=== PATIENT | male | born 1980 | race Caucasian/White ===

== ENCOUNTER 2022-09-09 12:15 | Emergency (ER) | payer OTHER, MEDICAID, SELFPAY ==
[2022-09-09 12:18] VITALS: BP 149/96; PULSE 84; RESP 16; TEMP 36.2; O2SAT 96; BMI 40.3
--- NOTE | 2022-09-09 12:19 | DI.CT.S_ITS ---
PROCEDURE: CT HEAD/BRAIN WO CON INDICATIONS: fall, severe headache, L eye vision change TECHNIQUE: Noncontrast 4.5 mm thick angled axial sections acquired from the foramen magnum to the vertex, with coronal and sagittal reformats. For radiation dose reduction, the following was used: automated exposure control, adjustment of mA and/or kV according to patient size. COMPARISON: None. FINDINGS: Image quality: Excellent. CSF spaces: Basal cisterns are patent. No extra-axial fluid collections. Ventricles are normal in size and shape. Brain: No midline shift. No intracranial masses or hemorrhage. Fay-white matter interface is normal. Skull and face: Calvarium and visualized facial bones are intact, without suspicious lesions. Sinuses: Visualized sinuses and mastoids are clear. IMPRESSION: No acute intracranial process. Dictated by: Neto Escobar M.D. on 09/09/2022 at 13:08 Approved by: Neto Escobar M.D. on 09/09/2022 at 13:09
--- NOTE | 2022-09-09 12:19 | DI.CT.S_ITS ---
PROCEDURE: CT CERVICAL SPINE WO CON INDICATIONS: fall with pain TECHNIQUE: Noncontrast 3 mm thick sections acquired from the skull base to the T4 level. Sagittal and coronal reformats were then constructed. For radiation dose reduction, the following was used: automated exposure control, adjustment of mA and/or kV according to patient size. COMPARISON: None. FINDINGS: Image quality: Excellent. Bones: No fractures or dislocations. Visualized superior ribs are intact. Mild cervical spondylosis. Bilateral uncovertebral joint osteophytes narrow the foraminal bilaterally at C4-C5 and C5-C6. Soft tissues: Prevertebral soft tissues are normal in thickness. No paravertebral hematomas. No apical pneumothoraces. IMPRESSION: No evidence acute cervical fracture or dislocation. Cervical spondylosis. Dictated by: Neto Escobar M.D. on 09/09/2022 at 13:09 Approved by: Neto Escobar M.D. on 09/09/2022 at 13:11
--- NOTE | 2022-09-09 12:20 | ED_ITS ---
HPI - General Adult General Chief complaint: Fall Stated complaint: Fall, blurry vision Time Seen by Provider: 09/09/22 12:19 History of Present Illness HPI narrative: 41M nonsmoker with noncontributory medical history presents by EMS for evaluation of a fall with head and neck injury. He does not take blood thinners. He was going to sit in a chair which broke when he sat down causing him to fall backwards and strike the back of his head. He now has a severe headache and complains of left eye vision change and midline neck pain. He is nauseated but denies any vomiting. He denies any contributing prodromal symptoms such as dizziness, weakness or lightheadedness. He did not lose consciousness and has full recall of the event. He denies any extremity numbness, tingling or weakness Review of Systems Review of Systems Narrative: GENERAL: Denies chills, fatigue, malaise, fever, sweats. HEENT: See HPI RESPIRATORY: Denies dyspnea, cough, wheezing, hemoptysis, sputum. CARDIOVASCULAR: Denies chest pain, palpitations, orthopnea, edema, GASTROINTESTINAL: Denies nausea, vomiting, abdominal pain, diarrhea, constipation, melena. : Denies dysuria, frequency, incontinence, hematuria, urinary retention. MUSCULOSKELETAL: denies weakness, joint pain, or bony pain SKIN: Denies rash, skin lesions, or other NEUROLOGIC: See HPI PSYCHIATRIC: No concerning psychosocial issues. 12 point review of systems is negative except for those stated above Exam Narrative Exam Narrative: GENERAL: [41] year old patient appears stated age. Well-developed patient, in mild distress. GCS 15 HEAD: Atraumatic. Normocephalic. No contusion, hematoma no evidence of depressed skull fracture EYES: Pupils equal round and reactive. Extraocular motions intact. No scleral icterus. No injection or drainage. ENT: Nose without bleeding, purulent drainage. Throat without erythema, tonsillar hypertrophy or exudate. Airway patent. NECK: Trachea midline. Non tender, mild midline tenderness, no step-offs or crepitance CARDIOVASCULAR: Regular rate and rhythm without murmurs, gallops, or rubs. RESPIRATORY: Clear to auscultation. Breath sounds equal bilaterally. No wheezes, rales, or rhonchi. GASTROINTESTINAL: Abdomen soft, non-tender, nondistended. EXTREMITIES: No edema or joint tenderness. BACK: Nontender without deformity or crepitance. No flank tenderness. NEURO: AOx3. SKIN: No rash or erythema of visible areas Initial Vital Signs Initial Vital Signs: Vital Signs Temperature 97.2 F L 09/09/22 12:18 Pulse Rate 84 09/09/22 12:18 Respiratory Rate 16 09/09/22 12:18 Blood Pressure 149/96 H 09/09/22 12:18 Pulse Oximetry 96 09/09/22 12:18 Oxygen Delivery Method Room Air 09/09/22 12:18 Course Orders Ordered: ED Orders 09/09/22 12:19 CT cervical spine wo con Stat CT head/brain wo con Stat Vital Signs Vital signs: Vital Signs - 8 hr 09/09/22 12:18 09/09/22 13:28 Temperature 97.2 F L Pulse Rate 84 87 Respiratory Rate 16 16 Blood Pressure 149/96 H 161/89 H Pulse Oximetry 96 98 Oxygen Delivery Method Room Air Room Air Medical Decision Making [facility] Narrative Medical decision making narrative: 41] year old patient presents with fall with head injury Multiple etiologies for patient's symptoms considered including, but not limited to: [Concussion, intracranial hemorrhage, paraspinal spasm versus fracture versus other] Primary Historian: patient Imaging reviewed: Head CT and C-spine without evidence of fracture, bleeding, dislocation Patient's symptoms improved over duration of stay with above-stated therapies. History and physical exam reassuring, no abnormal extraocular motion, no evidence of hyphema, scleral injection, watering. Findings and discharge diagnosis discussed with patient/family followed by verbalization of understanding Return precautions discussed with patient/family whom verbalize understanding of diagnosis and plan Discharge Plan Departure Patient Disposition: Home Clinical Impression: Concussion Instructions: Concussion Activity Restrictions/Additional Instructions: *You have been diagnosed with [fall with head injury and evidence of mild concussion. As we discussed your CT scans of the head and cervical spine are unremarkable] *What to do: *Please continue to take your regular medications as directed. [ ] New medication prescriptions sent to your pharmacy: [ ] [ ] New medication written as a paper prescription [ ] No new medications given *Please follow up with your primary care provider in 2-3 days, call for an appointment. Let them know you were seen in the Emergency Department and that we ask that you be seen in follow up. We will electronically transmit a record of today's note if your PCP is in our system As we discussed I have reached out to local ophthalmology, I have included their contact information, please call later today, let them know you were seen in the emergency department and we would like you seen in follow-up. *If you do not have a primary care provider please contact the [facility] Resource line at [phone]. They will ask some questions about your medical history and help get you set up with a doctor in the community. *Return to Emergency Department if you should have any new, worsening or concerning symptoms, such as [fever greater than 101 F, shaking chills, worsening pain, persistent vomiting or other bothersome symptoms] Referrals: Radha Henson MD [Physician] - Miscellaneous,MD Kenton [Primary Care Provider] - Stand Alone Forms: Patient Portal/API
[2022-09-09 13:28] VITALS: BP 161/89; PULSE 87; RESP 16; O2SAT 98
== END 2022-09-09 13:35 | disposition home or self-care (01) ==
PROVIDERS: Emergency Provider Emergency Medicine
DX: S06.0X0A Concussion without loss of consciousness, initial encounter (principal); M54.2 Cervicalgia; W07.XXXA Fall from chair, initial encounter
CPT/HCPCS: 70450; 72125; 99282; 99283

== ENCOUNTER 2022-09-16 11:13 | Emergency (ER) | payer OTHER, MEDICAID, SELFPAY ==
[2022-09-16 11:18] VITALS: BP 148/95; PULSE 94; RESP 18; TEMP 36.4; O2SAT 99; BMI 39.1
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
[2022-09-16 12:41] VITALS: BP 149/80; PULSE 85; RESP 18; O2SAT 97
== END 2022-09-16 12:41 | disposition home or self-care (01) ==
PROVIDERS: Emergency Provider Student in an Organized Health Care Education/Training Program
DX: H60.92 Unspecified otitis externa, left ear (principal)
CPT/HCPCS: 99281

== ENCOUNTER 2022-11-21 13:12 | Inpatient (IN) | payer OTHER, MEDICAID, SELFPAY ==
[2022-11-21] VITALS (7 sets, daily range): BP systolic 105–160; BP diastolic 60–111; PULSE 89–112; RESP 18–20; TEMP 36.8–37.1; O2SAT 96–98; BMI 37.3
--- NOTE | 2022-11-21 13:29 | DI.RAD.S_ITS ---
PROCEDURE: XR CHEST 1V INDICATIONS: suspected sepsis TECHNIQUE: One view of the chest was acquired. COMPARISON: None. FINDINGS: Surgical changes and devices: None. Lungs and pleura: Lungs are clear. No pleural effusions or pneumothorax. Mediastinum: Mediastinal contours appear normal. Heart size is normal. Bones and chest wall: No suspicious bony lesions. Overlying soft tissues appear unremarkable. IMPRESSION: No acute cardiopulmonary process. Dictated by: Dennis Macdonald M.D. on 11/21/2022 at 15:45 Approved by: Dennis Mcadonald M.D. on 11/21/2022 at 15:45
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
--- NOTE | 2022-11-21 13:30 | DI.RAD.S_ITS ---
PROCEDURE: XR ANKLE RT MIN 3V INDICATIONS: foot/ankle injury monday. TECHNIQUE: 3 views of the ankle were acquired. COMPARISON: None. FINDINGS: Bones: No fractures or dislocations. Ankle mortise is normally aligned. No suspicious bony lesions. Osteoarthritic changes of the ankle joint. Soft tissues: No tibiotalar joint effusion. Achilles tendon appears normal. IMPRESSION: No acute osseous abnormality. If pain persists with conservative management, consider repeat x-ray in 10-14 days or cross-sectional imaging. Dictated by: Dennis Macdonald M.D. on 11/21/2022 at 15:44 Approved by: Dennis Macdonald M.D. on 11/21/2022 at 15:45
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
--- NOTE | 2022-11-21 14:17 | DI.RAD.S_ITS ---
PROCEDURE: XR KNEE RT 3V INDICATIONS: knee pain TECHNIQUE: 3 views of the knee were acquired. COMPARISON: None. FINDINGS: Bones: No fractures or dislocations. No suspicious bony lesions. Soft tissues: No joint effusion. No suspicious soft tissue calcifications. IMPRESSION: No acute bony abnormality. Dictated by: Roman Liang M.D. on 11/21/2022 at 14:57 Approved by: Roman Liang M.D. on 11/21/2022 at 14:57
[2022-11-21 14:41] LABS: Add Manual Diff / Slide Review NO; Basophils Absolute Auto 0 /uL (0-100); Basophils Percent Auto 0.2 % (0-2); Eosinophils Absolute Auto 100 /uL (0-450); Eosinophils Percent Auto 0.5 % (2-4); Hematocrit 46.4 % (41-53); Hemoglobin 16.1 g/dL (13.5-17.5); Lymphocytes Absolute Auto 1300 /uL (1100-4500); Lymphocytes Percent Auto 8.3 % (25-40); Mean Corpuscular HGB Conc 34.6 % (30-36); Mean Corpuscular Hemoglobin 31.1 PG (26-34); Mean Corpuscular Volume 89.8 fL (80-100); Monocytes Absolute Auto 800 /uL (0-900); Monocytes Percent Auto 5.2 % (3-14); Neutrophils Absolute Auto 13100 /uL (1500-7000); Neutrophils Percent Auto 85.8 % (50-75); Platelet Count 221 X10^3/uL (150-400); Red Blood Cell Count 5.17 X10^6/uL (4.5-5.9); Red Cell Distribution Width 13.5 % (11.6-14.8); White Blood Cell Count 15.2 X10^3/uL (4.5-11.0)
[2022-11-21 14:55] LABS: INR 1.2 (0.9-1.3); Lactate (Lactic Acid) 1.3 mmol/L (0.7-2.1); Prothrombin Time 13.9 SECONDS (10.1-12.7)
[2022-11-21 14:56] LABS: Alanine Aminotransferase 35 IU/L (<50); Albumin 4.5 g/dL (3.5-5.0); Alkaline Phosphatase 77 U/L (38-126); Aspartate Aminotransferase 31 IU/L (17-59); BUN Creatinine Ratio 19.8 (6-22); Bilirubin Total 1.2 mg/dL (0.2-1.3); Blood Urea Nitrogen 17 mg/dL (9-20); Calcium 9.4 mg/dL (8.4-10.2); Carbon Dioxide 25 mmol/L (22-32); Chloride 97 mmol/L (98-107); Estimated Glomerular Filt Rate > 60 mL/min (>60); Globulin 4.3 g/dL (1.7-4.1); Glucose 109 mg/dL (70-100); HEMOLYSIS 35 (0-50); Lipase 42 U/L (23-300); Potassium 3.7 mmol/L (3.4-5.1); Sodium 135 mmol/L (137-145); Total Protein 8.8 g/dL (6.3-8.2)
[2022-11-21 14:58] LABS: PTT Partial Thromboplastin Tim 29 SECONDS (26-36)
[2022-11-21 15:13] LABS: Procalcitonin 1.85 ng/mL (<0.5)
--- NOTE | 2022-11-21 15:46 | PC.NURSE ---
right lower leg red from foot up to knee. Warm to touch. CMS intact. Swelling noted.
[2022-11-21] MEDS: SODIUM CHLORIDE 0.9% 891 ML IV (15:56)
[2022-11-21] MEDS: CLINDAMYCIN 900 MG/50 ML PIGGYBACK 50 MG IV (16:09)
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
[2022-11-21 17:23] LABS: RBC Urine 0-1/HPF (0-5/HPF); WBC Urine 5-10/HPF (0-5/HPF)
[2022-11-21 17:24] LABS: Bacteria Urine Moderate (10-30); Granular Casts Urine 1-5/LPF; Mucus Urine 4+ (Negative); Squamous Epithelial Cell Urine None Seen (0-5/HPF); White Blood Cell Casts Urine 0-1/LPF
[2022-11-21 17:25] LABS: Culture Indicated Urine Specimen Cultured
[2022-11-21 17:26] LABS: Ictotest Urine Positive (Negative)
[2022-11-21] MEDS: OXYCODONE IR 10 MG TABLET PO (18:20)
[2022-11-21] MEDS: cefTRIAXone 2,000 MG in SODIUM CHLORIDE 0.9% 100 ML 200 MG IV (18:20)
[2022-11-21] MEDS: ACETAMINOPHEN 325 MG TABLET 650 MG PO (18:20)
--- NOTE | 2022-11-21 18:27 | PC.NURSE ---
Pt arrived from ED on stretcher at 1745, able to transfer independently to bed, VSS on RA. A&Ox4, c/o 7/10 pain to RLE. Red rash from R knee down to foot, swollen, skin tight, +1 pedal pulse. No c/o chest pain or SOB, bowel sounds present. Pt oriented to room and call light. Bed in low position, call light within reach, bed alarm activated.
--- NOTE | 2022-11-21 18:47 | DI.US.S_ITS ---
PROCEDURE: US PERIPH VENOUS LOW EXTREM RT INDICATIONS: ERYTHEMA, EDEMA TECHNIQUE: Real-time imaging, as well as color and pulse Doppler interrogation, were performed of the lower extremity deep veins from the inguinal ligament to the popliteal fossa, with documentation of the visualized calf veins. COMPARISON: None. FINDINGS: The common femoral, femoral, popliteal, and the visualized calf veins are normally compressible, and free of intraluminal thrombus. Color and pulse Doppler demonstrate normal phasic intraluminal flow. There is normal augmentation response to distal compression maneuver. IMPRESSION: No findings of lower extremity deep venous thrombosis. Dictated by: Remigio Casanova M.D. on 11/21/2022 at 20:03 Approved by: Remigio Casanova M.D. on 11/21/2022 at 20:04
[2022-11-21] MEDS: VANCOMYCIN 2,000 MG/400 ML PIGGYBACK 200 MG IV (19:47)
[2022-11-22] VITALS (9 sets, daily range): BP systolic 115–140; BP diastolic 63–88; PULSE 69–84; RESP 17–18; TEMP 35.7–36.8; O2SAT 95–99
[2022-11-22] MEDS: VANCOMYCIN 2,000 MG/400 ML PIGGYBACK 200 MG IV ×2 (06:34→18:46)
[2022-11-22] MEDS: OXYCODONE IR 10 MG TABLET PO ×3 (06:50→21:17)
--- NOTE | 2022-11-22 09:21 | PC.NURSE ---
Patient is awake and sitting at the side of the bed eating his breakfast. He refused his morning blood draw, will try again later to see if he would like to have them drawn. [place] is swollen and red to touch. Denies pain at this time.
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
[2022-11-22 15:58] LABS: MRSA (Nasal) PCR Not Detected (Not Detect)
[2022-11-22] MEDS: cefTRIAXone 2,000 MG in SODIUM CHLORIDE 0.9% 100 ML 200 MG IV (17:58)
[2022-11-22] MEDS: ACETAMINOPHEN 325 MG TABLET 650 MG PO (23:00)
[2022-11-23] VITALS (10 sets, daily range): BP systolic 126–140; BP diastolic 71–87; PULSE 73–79; RESP 18; TEMP 36.5–37; O2SAT 94–98
[2022-11-23 06:51] LABS: Alanine Aminotransferase 25 IU/L (<50); Albumin 3.3 g/dL (3.5-5.0); Albumin Globulin Ratio 1.2 (1.0-2.8); Alkaline Phosphatase 50 U/L (38-126); Aspartate Aminotransferase 22 IU/L (17-59); BUN Creatinine Ratio 19.4 (6-22); Bilirubin Total 0.4 mg/dL (0.2-1.3); Blood Urea Nitrogen 12 mg/dL (9-20); Calcium 8.5 mg/dL (8.4-10.2); Carbon Dioxide 23 mmol/L (22-32); Chloride 106 mmol/L (98-107); Estimated Glomerular Filt Rate > 60 mL/min (>60); Globulin 2.7 g/dL (1.7-4.1); Glucose 105 mg/dL (70-100); HEMOLYSIS 23 (0-50); Potassium 4.2 mmol/L (3.4-5.1); Sodium 138 mmol/L (137-145)
[2022-11-23 06:56] LABS: Vancomycin Trough 6.4 ug/mL (10-20)
[2022-11-23] MEDS: VANCOMYCIN 2,000 MG/400 ML PIGGYBACK 200 MG IV (07:10)
[2022-11-23] MEDS: VANCOMYCIN TROUGH 1 REQUEST MISC (07:17)
[2022-11-23 08:18] LABS: Add Manual Diff / Slide Review NO; Basophils Absolute Auto 0 /uL (0-100); Basophils Percent Auto 0.6 % (0-2); Eosinophils Absolute Auto 300 /uL (0-450); Eosinophils Percent Auto 3.5 % (2-4); Hematocrit 42.3 % (41-53); Hemoglobin 14.5 g/dL (13.5-17.5); Lymphocytes Absolute Auto 1300 /uL (1100-4500); Lymphocytes Percent Auto 18.3 % (25-40); Mean Corpuscular HGB Conc 34.3 % (30-36); Mean Corpuscular Volume 90.5 fL (80-100); Monocytes Absolute Auto 400 /uL (0-900); Monocytes Percent Auto 5.2 % (3-14); Neutrophils Absolute Auto 5300 /uL (1500-7000); Neutrophils Percent Auto 72.4 % (50-75); Platelet Count 238 X10^3/uL (150-400); Red Blood Cell Count 4.67 X10^6/uL (4.5-5.9); Red Cell Distribution Width 13.5 % (11.6-14.8); White Blood Cell Count 7.3 X10^3/uL (4.5-11.0)
[2022-11-23] MEDS: OXYCODONE IR 10 MG TABLET PO (09:53)
--- NOTE | 2022-11-23 15:14 | CM.DPC ---
DCP Continued: STEMMER MACHINE reviewed EMR. From provider in rounds, likely no d/c today. STEMMER MACHINE entered room and reintroduced self and role. Patient was standing near bed. Reports feeling better. Continues to report no needs at this time. Reports has not looked over the financial forms provided to him by this author yet. Plan: d/c home when medically stable. Will transport self. CM team will continue to follow as needed. LUIS MIGUEL Faith
[2022-11-23] MEDS: ACETAMINOPHEN 325 MG TABLET 650 MG PO ×2 (15:34→21:32)
[2022-11-23] MEDS: OXYCODONE IR 5 MG TABLET PO ×2 (15:35→21:38)
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
[2022-11-23] MEDS: cefTRIAXone 2,000 MG in SODIUM CHLORIDE 0.9% 100 ML 200 MG IV (18:25)
[2022-11-23] MEDS: KETOROLAC 10 MG TABLET PO (21:37)
[2022-11-24 01:00] VITALS: O2SAT 97
[2022-11-24] MEDS: KETOROLAC 10 MG TABLET PO (03:12)
[2022-11-24] MEDS: OXYCODONE IR 5 MG TABLET PO (03:12)
[2022-11-24] MEDS: ACETAMINOPHEN 325 MG TABLET 650 MG PO (03:13)
[2022-11-24 03:14] VITALS: BP 133/90; PULSE 69; RESP 18; TEMP 36.5; O2SAT 94
[2022-11-24 05:00] VITALS: O2SAT 96
[2022-11-24 08:00] VITALS: BP 135/96; PULSE 72; RESP 18; O2SAT 95
[2022-11-24 09:00] VITALS: O2SAT 95
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
[2022-11-24] MEDS: OXYCODONE IR 10 MG TABLET PO (10:11)
--- NOTE | 2023-01-25 18:53 | PC.NURSE ---
Faxed discharge summary and ED summary to [facility] where pt is currently in the ED. Faxed for ongoing care to [phone].
== END 2022-11-24 13:10 | disposition home or self-care (01) | DRG 383 ==
LOC: ED 14:05 → AC 16:56
PROVIDERS: Admitting Provider Internal Medicine; Emergency Provider Emergency Medicine; PCP Nurse Practitioner Family; Referring Provider Emergency Medicine; Visit Provider Internal Medicine
DX: L03.115 Cellulitis of right lower limb (principal); F11.21 Opioid dependence, in remission; R82.71 Bacteriuria; E66.9 Obesity, unspecified; R73.9 Hyperglycemia, unspecified; Z68.37 Body mass index [BMI] 37.0-37.9, adult
CPT/HCPCS: 36415; 71045; 73562; 73610; 73630; 80053; 80202; 81003; 81015; 83605; 83690; 83735; 84145; 85025; 85610; 85730; 87040; 87086; 87797; 93971; 96365; 99284; G0378; J0696